=== PATIENT | male | born 1985 | race Caucasian/White ===

== ENCOUNTER 2021-04-21 23:53 | Emergency (ER) | payer MEDICARE, MEDICAID, SELFPAY ==
[2021-04-22 00:02] VITALS: BP 132/81; PULSE 78; RESP 16; TEMP 36.7; O2SAT 98; BMI 39.1
--- NOTE | 2021-04-22 01:22 | W.ED.EYEPROB ---
HPI - Eye Problem General: Chief complaint: Eye Problems Stated complaint: Has Something in eye Time Seen by Provider: 04/22/21 01:19 History of Present Illness: HPI Narrative: 36-year-old male patient comes in tonight with concern for something being in his right eye. Patient awoke at 11:00 having a sensation of a foreign body in the right eye. Patient rubbed his eye to the point of discomfort. Patient came into the ER for further evaluation. Since arriving at the ER patient reports that he has had improvement in his overall symptoms and denies any other concerns at this time. Patient denies any problems with visualization or irritation at this time. Review of Systems General: Reports: 10 or more systems reviewed and unremarkable except in HPI and below Eyes: Reports: eye discomfort Physical Exam Const: COMMON NORMALS: no acute distress and patient oriented x3 GENERAL APPEARANCE: cooperative HENMT: COMMON NORMALS: normocephalic and Normal external nose present HEAD & SCALP: normal to inspection and normocephalic NOSE: Normal external nose present MOUTH: Normal oral and palatal mucosa present Eye: COMMON NORMALS: Equal, round and reactive pupils present, EOMs intact bilaterally, no papilledema and normal visual barger by confrontation GENERAL EYE: appearance normal, both eyes and all related structures VISUAL ACUITY: Yes acuity normal PUPIL: Yes Equal, round and reactive pupils present DIRECT OPHTHALMOSCOPY: Yes no papilledema Neck/C-Spine: COMMON NORMALS: full ROM Chest: COMMONS NORMALS: normal inspection of the chest Resp: COMMON NORMALS: normal respiratory effort EFFORT & INSPECTION: Yes able to speak in complete sentences Cardio: COMMON NORMALS: regular rate and regular rhythm RATE: regular rate RHYTHM: regular rhythm GI: COMMON NORMALS: non-tender Extremity: COMMON NORMALS: normal to inspection Neuro: COMMON NORMALS: patient oriented x3 and moves all extremities Psych: COMMON NORMALS: mental status grossly normal and cooperative Skin: COMMON NORMALS: no rashes or lesions noted GENERAL SKIN EXAM: no rashes or lesions noted Course Vital Signs: Vital signs: Vital Signs Temperature 98.1 F 04/22/21 00:02 Pulse Rate 78 04/22/21 00:02 Respiratory Rate 16 04/22/21 00:02 Blood Pressure 132/81 04/22/21 00:02 Pulse Oximetry 98 04/22/21 00:02 MDM - Eye Problem MDM Narrative: Medical decision making narrative: Patient comes in today for concerns of foreign body in the right eye. On exam the eye was appeared normal except for some mild discharge. Examination of the inner lid on the upper and lower eye there was no sign of foreign body. Examination of the cornea indicated no laceration or significant abrasion. Differential diagnosis includes foreign body resolved, corneal abrasion, conjunctivitis. Believe patient probably had a foreign body that has come out on its own. We will cover patient with some antibiotic for the next 5 days for secondary abrasion. Patient reported understanding and agreed to plan. Discharge Plan Discharge Patient Disposition: Home Clinical Impression: Abrasion, corneal Qualifiers: Encounter type: initial encounter Laterality: right Qualified Code(s): S05.01XA - Injury of conjunctiva and corneal abrasion without foreign body, right eye, initial encounter Condition: Stable Discharge Orders: Discharge ED (Routine); Ordered 04/22/21 Ordered By: Eleazar Johnson Referrals: Kalin Rg, [Primary Care Provider] - Discharge Diet: Usual diet Discharge Activity: Increase activity as tolerated Patient Instructions: Corneal Abrasion (ED), Opioid Safety Activity Restrictions/Additional Instructions: Use eyedrops 2 drops to the right eye 4 times a day while awake for the next 5 days. Follow-up with eye intensive care anaesthetist for worsening symptoms. Return to the ED for new concerns. Coding Level of Care Code ED Library Media Assistant for Shikha Guardado
[2021-04-22] MEDS: neomycin-poly-dex Op 5 mL Btl 2 DROP EYE-RIGHT (02:19)
[2021-04-22 02:20] VITALS: BP 133/77; PULSE 80; RESP 18; TEMP 36.8; O2SAT 99
== END 2021-04-22 02:20 | disposition home or self-care (01) ==
PROVIDERS: Emergency Provider Nurse Practitioner Family; PCP Electrodiagnostic Medicine
DX: S05.01XA Injury of conjunctiva and corneal abrasion without foreign body, right eye, initial encounter (principal); X58.XXXA Exposure to other specified factors, initial encounter
CPT/HCPCS: 99282

== ENCOUNTER 2022-12-29 06:33 | Emergency (ER) | payer MEDICARE, MEDICAID, SELFPAY ==
[2022-12-29 06:40] VITALS: BP 129/86; PULSE 102; RESP 26; TEMP 36.8; O2SAT 98; BMI 29.5
--- NOTE | 2022-12-29 06:44 | W.ED.NECK ---
HPI - Neck Pain/Injury General: Chief Complaint: Neck Pain/Injury Stated Complaint: Neck pain and cant move neck Time Seen by Provider: 12/29/22 06:39 Source: patient Mode of arrival: ambulatory History of Present Illness: 37-year-old male comes into the emergency room with severe left-sided posterior neck pain. He did some physical therapy yesterday for radial nerve injury that he had in his left arm. They did some neck stretching and flexion exercises this morning and woke up with severe pain radiates up to the base of the skull and into his upper back but does not radiate from the neck down into the arm. He denies any chest discomfort. 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 No recent trauma. MD complaint: neck pain Onset (ago): hour(s) Place: home Radiation: occiput and upper back Severity: severe Quality: spasming Duration: constant Relieving factors: remaining still and other (Patient's finds position of maximum comfort with neck flexed) Exacerbating factors: none Associated symptoms: Denies dysphagia, difficulty walking, dizziness, fevers/chills, headache(s), nausea, swollen glands, tingling or weakness Treatments prior to arrival: none Review of Systems Const: Denies: fever(s), chills, body aches, change in appetite, fatigue or malaise ENMT: Denies: throat pain, ear or mastoid pain, nasal discharge or nasal congestion Card: Denies: chest pain, edema, dyspnea on exertion or orthopnea Resp: Denies: dyspnea, productive cough or non-productive cough GI: Denies: nausea or dysphagia : Denies: flank pain, dysuria, urinary frequency or urinary urgency Skin/Breast: Denies: rash or pruritus Neuro: Denies: headache(s), difficulty walking or dizziness Physical Exam Const: GENERAL APPEARANCE: cooperative ORIENTATION/CONSCIOUSNESS: Yes awake, Yes oriented to person, Yes oriented to place and Yes oriented to time HENMT: COMMON NORMALS: normocephalic, atraumatic and hearing grossly normal bilaterally HEAD & SCALP: normocephalic and atraumatic Neck/C-Spine: OTHER: No lymphadenopathy. Patient hesitant with range of motion pain reproducible with flexion extension and rotation. Resp: COMMON NORMALS: normal respiratory effort, No retractions, No use of accessory muscles and clear to auscultation bilaterally AUSCULTATION: clear to auscultation bilaterally Cardio: COMMON NORMALS: regular rate, regular rhythm and No murmurs present (Cardio) RATE: regular rate RHYTHM: regular rhythm Extremity: COMMON NORMALS: normal to inspection, capillary refill normal, no clubbing, cyanosis or edema, no calf tenderness and no pedal edema Neuro: SENSORIUM/ORIENTATION: Yes oriented to person, Yes oriented to place and Yes oriented to time Skin: COMMON NORMALS: no rashes or lesions noted GENERAL SKIN EXAM: no rashes or lesions noted Course Vital Signs: Vital signs: Vital Signs Temperature 98.2 F 12/29/22 06:40 Pulse Rate 93 12/29/22 06:52 Respiratory Rate 20 H 12/29/22 06:52 Blood Pressure 129/86 12/29/22 06:52 Pulse Oximetry 99 12/29/22 06:52 Oxygen Delivery Me thod Room Air 12/29/22 06:40 MDM - Neck Pain/Injury Medical Decision Making Musculoskeletal neck pain reproducible with movement no fever no rash. Precipitated likely by the exercises yesterday improved with medications given discharge home if not improving follow-up with primary care. If worsens or changes or develops fever return immediately. Medical Records I reviewed the patient's medical records. Lab Data I reviewed the patient's lab results. Discharge Plan Discharge Patient Disposition: Home Clinical Impression: Strain of neck muscle Condition: Stable Prescriptions: New tizanidine 4 mg tablet 4 mg PO Q6H PRN (Reason: muscle spasticity) Qty: 20 0RF Rx Instructions: do not exceed 3 doses per 24 hrs hydrocodone-acetaminophen 5-325 mg tablet 1 tab PO Q6H PRN (Reason: pain) Qty: 15 0RF prednisone 20 mg tablet 20 mg PO TID Qty: 15 0RF Rx Instructions: 1 p.o. 3 times daily x3 days, 1 p.o. twice daily x2 days, 1 p.o. daily x2 days diclofenac sodium 75 mg tablet,delayed release (DR/EC) 75 mg PO Q12H PRN (Reason: pain) Qty: 20 0RF Discharge Orders: Discharge ED (Routine); Ordered 12/29/22 Ordered By: Can Dey Referrals: Kalin Rg DO [Primary Care Provider] - Discharge Diet: Usual diet Discharge Activity: Resume usual activity Patient Instructions: Opioid Safety, Pain Management Activity Restrictions/Additional Instructions: You are seen today for muscle spasm in the left side of your neck. Suspect it was caused by activity. Recommend using the medications prescribed. If not improving follow-up with your primary care doctor. Do not lift or work above shoulder level avoid lifting or carrying anything above 5 to 8 pounds. Coding Level of Care Code ED Fisheries Director for Shikha Guardado
[2022-12-29 06:49] VITALS: RESP 20
[2022-12-29] MEDS: morphine 4 mg/mL SDV 1 mL 8 MG IVP (06:49)
[2022-12-29] MEDS: dexamethasone 10 mg/mL INJ IVP (06:51)
[2022-12-29] MEDS: ketorolac 30 mg/mL INJ IVP (06:51)
[2022-12-29 06:52] VITALS: BP 129/86; PULSE 93; RESP 20; O2SAT 99
[2022-12-29] MEDS: sodium chloride 0.9% 1,000 ML 999 ML IV (07:20)
[2022-12-29] MEDS: tizanidine 4 mg Tablet 8 MG PO (07:20)
[2022-12-29 08:40] VITALS: BP 124/63; PULSE 82; O2SAT 94
== END 2022-12-29 08:41 | disposition home or self-care (01) ==
PROVIDERS: Emergency Provider Family Medicine; PCP Electrodiagnostic Medicine
DX: S16.1XXA Strain of muscle, fascia and tendon at neck level, initial encounter (principal); X58.XXXA Exposure to other specified factors, initial encounter
CPT/HCPCS: 96361; 96374; 96375; 99284; J1100; J1885; J2270; J7030

== ENCOUNTER → 2023-03-09 10:43 | Outpatient (BNVA) | payer MEDICARE, MEDICAID, SELFPAY | PROVIDERS: PCP Electrodiagnostic Medicine; Visit Provider Internal Medicine Cardiovascular Disease | DX: I95.9 Hypotension, unspecified (principal) | CPT/HCPCS: 93005; 99204 ==

== ENCOUNTER → 2023-04-12 08:13 | Outpatient (BNVA) | payer MEDICARE, MEDICAID, SELFPAY | PROVIDERS: PCP Electrodiagnostic Medicine; Referring Provider Electrodiagnostic Medicine; Visit Provider Nurse Practitioner Family | DX: L81.4 Other melanin hyperpigmentation (principal); D22.5 Melanocytic nevi of trunk; L57.8 Other skin changes due to chronic exposure to nonionizing radiation; Z94.0 Kidney transplant status | CPT/HCPCS: 99203 ==

== ENCOUNTER → 2023-08-22 13:21 | Outpatient (BNVA) | payer MEDICARE, MEDICAID, SELFPAY | PROVIDERS: PCP Electrodiagnostic Medicine; Visit Provider Internal Medicine Cardiovascular Disease | DX: I95.9 Hypotension, unspecified (principal); R00.0 Tachycardia, unspecified; E11.9 Type 2 diabetes mellitus without complications; Z94.0 Kidney transplant status; Z79.84 Long term (current) use of oral hypoglycemic drugs | CPT/HCPCS: 99213 ==

== ENCOUNTER → 2024-05-10 08:20 | Outpatient (BNVA) | payer MEDICARE, MEDICAID, SELFPAY | PROVIDERS: PCP Electrodiagnostic Medicine; Visit Provider Nurse Practitioner Family | DX: L57.8 Other skin changes due to chronic exposure to nonionizing radiation (principal); L81.4 Other melanin hyperpigmentation; D22.5 Melanocytic nevi of trunk; Z71.89 Other specified counseling | CPT/HCPCS: 99213 ==

== ENCOUNTER → 2025-05-16 10:53 | Outpatient (BNVA) | payer MEDICARE, MEDICAID, SELFPAY | PROVIDERS: PCP Electrodiagnostic Medicine; Visit Provider Nurse Practitioner Family | DX: L81.4 Other melanin hyperpigmentation (principal); L57.8 Other skin changes due to chronic exposure to nonionizing radiation; Z94.0 Kidney transplant status | CPT/HCPCS: 99213 ==

== ENCOUNTER 2025-05-21 06:33 | Outpatient (CLI) | payer OTHER, MEDICAID, SELFPAY | END 2025-05-21 06:34 | disposition home or self-care (01) | PROVIDERS: PCP Electrodiagnostic Medicine; Visit Provider Nurse Practitioner Family | DX: R63.5 Abnormal weight gain (principal) | CPT/HCPCS: 93306 ==

== ENCOUNTER 2025-06-06 07:44 | Outpatient (CLI) | payer OTHER, MEDICAID, SELFPAY ==
--- NOTE | 2025-06-06 07:55 | USCV_ITS ---
Nieves Theo Age: 40 Gender: M : 1985 Exam Date: 06/06/2025 08:06 Ordering Phys: Linda Muller MD Technologist: ALEJO Exam Location: [facility] [place] Indication: elevated creatinine Aortic Velocity @ SMA (cm/s) 73.9 RIGHT KIDNEY LEFT KIDNEY Velocity (cm/s) Velocity (cm/s) Sys/Grant Sys/Grant Resistive Index Resistive Index 90.0 / 17.8 0.80 Proximal Renal Artery / 57.9 / 18.1 0.69 Mid Renal Artery / 59.7 / 24.5 0.59 Distal Renal Artery / 63.6 / 18.6 0.71 Hilar / 31.1 / 9.8 0.68 Upper Pole / 28.0 / 10.3 0.63 Mid Pole / 26.4 / 10.4 0.61 Lower Pole / 1.20 Renal Aortic Ratio Accleration Time (sec) 0.05 Hilar 0.08 Upper Pole 0.06 Mid Pole 0.08 Lower Pole 13.7 Kidney Length (cm) FINDINGS [place] RIGHT KIDNEY RECORDED- [place] LEFT KIDNEY AREA RECORDED CONCLUSIONS Normal Renal Transplant Normal Corticomedullary differentiation Normal allograft PSV. 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
== END 2025-06-06 07:45 | disposition home or self-care (01) ==
LOC: RAD 07:47
PROVIDERS: PCP Electrodiagnostic Medicine; Visit Provider Internal Medicine
DX: R94.4 Abnormal results of kidney function studies (principal); I10 Essential (primary) hypertension
CPT/HCPCS: 93975